=== PATIENT | male | born 1980 | race Caucasian/White ===

== ENCOUNTER 2021-04-30 13:51 | Emergency (ER) | payer MEDICAID ==
[2021-04-30] MEDS ORDERED: Sodium Chloride 0.9% 10 ML Syringe FLUSH PRN (14:36)
[2021-04-30] MEDS: HYDROmorphone 2 MG/ML SDV IVPUSH ONE ×2 (15:01→16:58)
[2021-04-30] MEDS: Diphtheria,Pertussis(Acell),Tetanus Vaccine 0.5 ML SDV IM ONE (15:05)
[2021-04-30] MEDS: HYDROmorphone 2 MG/ML SDV ONE ×2 (15:07→17:20)
[2021-04-30] MEDS: Ondansetron 4 MG/2 ML SDV IVPUSH PRN (15:13)
[2021-04-30] MEDS: Sodium Chloride 0.9% 1,000 ML IV SCH (15:13)
[2021-04-30] MEDS: Ondansetron 4 MG/2 ML SDV ONE (15:14)
[2021-04-30] MEDS: LORazepam 2 MG/ML SDV ONE (16:22)
[2021-04-30] MEDS: LORazepam 2 MG/ML SDV IVPUSH ONE (16:23)
== END 2021-05-01 09:50 ==
LOC: LB.ED 13:51
DX: T33.822A Superficial frostbite of left foot, initial encounter (principal); T33.821A Superficial frostbite of right foot, initial encounter; T33.72XA Superficial frostbite of left knee and lower leg, initial encounter; T33.71XA Superficial frostbite of right knee and lower leg, initial encounter; Z72.0 Tobacco use; Z20.822 Contact with and (suspected) exposure to COVID-19; Z23 Encounter for immunization; Z95.1 Presence of aortocoronary bypass graft; X31.XXXA Exposure to excessive natural cold, initial encounter
CPT/HCPCS: 36415; 80048; 85025; 87635; 90471; 90715; 96374; 96375; 96376; 99284; A0425; A0429; J1170; J2060; J2405; J7030; 99285; U0002

== ENCOUNTER 2022-06-01 18:11 | Emergency (ER) | payer MEDICAID ==
[2022-06-01] MEDS ORDERED: Lactated Ringers 1,000 ML IV ONE (18:37)
[2022-06-01] MEDS ORDERED: LORazepam 2 MG/ML SDV IVPUSH ONE (18:43)
[2022-06-01 19:49] LABS: ESTIMATED GFR 94 mL/min (>60)
== END 2022-06-01 20:08 | disposition home or self-care (01) ==
LOC: LB.ED 18:11
DX: F10.129 Alcohol abuse with intoxication, unspecified (principal); Y90.6 Blood alcohol level of 120-199 mg/100 ml; Z72.0 Tobacco use; Z95.0 Presence of cardiac pacemaker
CPT/HCPCS: 36415; 80053; 80307; 85027; 96361; 96374; 99284-25; A0425; A0429; J2060; J7120

== ENCOUNTER 2022-08-08 22:59 | Emergency (ER) | payer OTHER, MEDICAID ==
[2022-08-08] MEDS ORDERED: HYDROmorphone 2 MG/ML Syringe IVPUSH ONE (23:35)
[2022-08-08] MEDS ORDERED: Acetaminophen/HYDROcodone 325-5 MG Tab ONE (23:50)
[2022-08-08] MEDS ORDERED: Cephalexin 500 MG Cap ONE (23:50)
[2022-08-08 23:55] LABS: BASOPHILS ABSOLUTE AUTO 0.07 K/uL (0.02-0.10); BASOPHILS PERCENT AUTO 0.7 % (0.0-0.5); EOSINOPHILS ABSOLUTE AUTO 0.26 K/uL (0.04-0.40); EOSINOPHILS PERCENT AUTO 2.5 % (1.0-5.0); HEMATOCRIT 36.1 % (40.0-54.0); HEMOGLOBIN 12.9 g/dL (13.0-18.0); LYMPHOCYTES ABSOLUTE AUTO 1.56 K/uL (1.50-4.00); LYMPHOCYTES PERCENT AUTO 14.7 % (20.0-40.0); MEAN CORPUSCULAR HEMOGLOBIN 33.1 pg (27.0-32.0); MEAN CORPUSCULAR HGB CONC 35.7 g/dL (31.0-35.0); MEAN CORPUSCULAR VOLUME 93 fL (76-96); MEAN PLATELET VOLUME 8.7 fL (6.0-10.0); MONOCYTES ABSOLUTE AUTO 0.77 K/uL (0.20-0.80); MONOCYTES PERCENT AUTO 7.3 % (3.0-10.0); NEUTROPHILS ABSOLUTE AUTO 7.94 K/uL (2.00-7.50); NEUTROPHILS PERCENT AUTO 74.8 % (45.0-70.0); PLATELET COUNT,PLT 206 K/uL (150-400); RED CELL DISTRIBUTION WIDTH 12.4 % (11.0-16.0); WHITE BLOOD CELL COUNT,WBC 10.6 K/uL (4.0-11.0)
[2022-08-09 00:22] LABS: A/G RATIO 1.2 (0.8-2.0); ALANINE AMINOTRANSFERASE,ALT 41 U/L (12-78); ALBUMIN 3.5 g/dL (3.4-5.0); ALKALINE PHOSPHATASE 58 U/L (46-116); ANION GAP 7.5 mmol/L (5.0-15.0); ASPARTATE AMNIOTRANSFERASE,AST 26 U/L (15-37); BILIRUBIN TOTAL 0.2 mg/dL (0.0-1.0); BLOOD UREA NITROGEN,BUN 22 mg/dL (8-26); CALCIUM 8.5 mg/dL (8.5-10.1); CARBON DIOXIDE,CO2 29.3 mmol/L (21.0-32.0); CHLORIDE,CL 105 mmol/L (98-107); CREATININE 1.22 mg/dL (0.70-1.30); ESTIMATED GFR 75 mL/min (>60); GLUCOSE RANDOM 103 mg/dL (74-100); POTASSIUM,K 3.8 mmol/L (3.5-5.1); PROTEIN TOTAL,TP 6.5 g/dL (6.4-8.2); SODIUM,NA 138 mmol/L (136-145)
[2022-08-09 00:46] LABS: APPEARANCE,URINE CLEAR (CLEAR); BILIRUBIN,URINE NEGATIVE (NEGATIVE); COLOR,URINE YELLOW; GLUCOSE,URINE NEGATIVE (NEGATIVE); KETONES,URINE NEGATIVE (NEGATIVE); LEUKOCYTE ESTERASE,URINE NEGATIVE (NEGATIVE); NITRITE,URINE NEGATIVE (NEGATIVE); OCCULT BLOOD,URINE NEGATIVE (NEGATIVE); PROTEIN,URINE NEGATIVE (NEGATIVE); UROBILINOGEN,URINE 0.2 E.U./dL (0.2-1.0)
[2022-08-09 00:50] LABS: RBC,URINE NOT SEEN /HPF
[2022-08-09 00:51] LABS: AMPHETAMINES SCREEN, URINE NEGATIVE (NEGATIVE); BARBITURATE SCREEN,URINE NEGATIVE (NEGATIVE); BENZODIAZEPINES SCREEN,URINE NEGATIVE (NEGATIVE); METHADONE SCREEN, URINE NEGATIVE (NEGATIVE); METHAMPHETAMINES SCREEN, URINE NEGATIVE (NEGATIVE); OXYCODONE SCREEN,URINE NEGATIVE (NEGATIVE); THC SCREEN,URINE 50 NG/ML POSITIVE (NEGATIVE)
[2022-08-09 00:51] LABS: SQUAMOUS EPITHELIAL CELLS,UR OCCASIONAL /HPF; WBC,URINE NOT SEEN /HPF
== END 2022-08-09 01:00 | disposition home or self-care (01) ==
LOC: LB.ED 22:59
DX: S01.511A Laceration without foreign body of lip, initial encounter (principal); Z88.0 Allergy status to penicillin; Z95.0 Presence of cardiac pacemaker; V89.2XXA Person injured in unspecified motor-vehicle accident, traffic, initial encounter; Y92.410 Unspecified street and highway as the place of occurrence of the external cause
CPT/HCPCS: 12013; 36415; 70486; 71250; 72125; 80053; 80307; 81001; 85025; 99284; J1170; A9270-GY

== ENCOUNTER 2022-10-23 11:59 | Day surgery (SDC) | payer MEDICAID ==
[~2022-10-23 11:59] MED LIST: Metoclopramide 10 MG/2 ML SDV IV PRN
[2022-10-23] MEDS: Sodium Chloride 0.9% 1,000 ML IV SCH (12:39)
[2022-10-23] MEDS ORDERED: Propofol 1,000 MG/100 ML SDV ONE (14:00)
== END 2022-10-23 14:50 | disposition home or self-care (01) ==
LOC: LB.SDS 11:59
PROVIDERS: ATTEND Surgery
DX: K64.8 Other hemorrhoids (principal); F17.200 Nicotine dependence, unspecified, uncomplicated
CPT/HCPCS: J2704; J7030